=== PATIENT | male | born 1960 | race Caucasian/White ===

== ENCOUNTER 2024-09-27 09:44 | Inpatient (IN) ==
--- NOTE | 2024-08-23 09:12 | PAT Medication Instructions ---
Medication Instructions Date of Service August 23, 2024 Home Medications lisinopril 10 mg tablet 10 mg PO QAM metformin 500 mg tablet 1,500 mg PO QAM DO NOT take the morning of surgery lisinopril 10 mg tablet 10 mg PO QAM metformin 500 mg tablet 1,500 mg PO QAM Other Notes NOTHING TO EAT OR DRINK AFTER MIDNIGHT. If you have any questions please call us at [phone] or [phone] or [phone] or [phone]
--- NOTE | 2024-08-30 12:47 | Anesthesiology Consultation ---
Date of Service August 30, 2024 Assessment & Plan (1) Encounter for pre-operative examination: - Check BSG DOS - Infectious disease screening: Per assessment on 08/30/24- No known recent infectious disease contacts or current infectious disease symptoms. - Patient acceptable risk for surgery pending surgeon-ordered PCP preop evaluation (Dr. Neil Vega/Samir, appt ~09/11). Chart Review Chart Review: Patient seen in Pre Admission Testing Teaching & Discussion Pre-Anesthesia Teaching/Discussion Notes: Instructed NPO after midnight before surgery,except medications with 15 cc of water. Medication instructions provided according to the PAT guidelines. History Surgery Operation Date: 09/24/24 10:05 Proposed Procedures p L4-S1 Decompression and Fusion, Spinal Cord Monitoring - Alejo June DO Height/Weight Height: 5 ft 11 in Weight: 83.915 kg Allergies Allergy/AdvReac Type Severity Reaction Status Date / Time No Known Allergies Allergy Verified 08/16/24 11:15 Medications Home Medications Medication Instructions Recorded Confirmed Last Taken lisinopril 10 mg tablet 10 mg PO QAM 08/16/24 08/16/24 Unknown metformin 500 mg tablet 1,500 mg PO QAM 08/16/24 08/16/24 Unknown Past Medical History Medical History Diabetes NIDDM History of colon polyps "benign" History of COVID-19 (2022) Spinal stenosis Exercise / Class Metabolic Activity II 4-5 Yardwork/Stairs/Walk up hill (one FS: No CP, no SOB) Past Surgical History Surgical History History of anesthesia reaction "Don't come around quickly.. fog-like" History of arthroscopy of right knee x2 History of arthroscopy of right shoulder History of back surgery Herniation "clipping" via small incision History of colonoscopy History of repair of left rotator cuff Arthroscopic History of repair of right rotator cuff Past Anesthesia History No Family Hx of Anesthesia Complications and Other ("Don't come around quickly.. fog-like") History of PONV No Hx of PONV and No Hx of Motion Sickness Social History Smoking Status: Former smoker Do You Dip or Chew Tobacco: No Smoking End Date: Quit 07/2024 Hx Alcohol Use: Yes Alcohol type: beer alcohol intake frequency: a few times a week Hx Substance Use: No substance use type: does not use Review of Systems Patient denies chest pain, shortness of breath, dyspnea on exertion, fever, chills, cough, wheezing, palpitations. Physical Exam Vital Signs BP 123/63 P 71 TEMP 97.5 SP02 95%RA RESP 18 Physical Full cervical extension range of motion. Full TMJ range of motion. TMD 3 finger breaths Mallampati Score III Dentition: intact Lungs: course breath sounds in lung bases Cardiac: regular rate and rhythm, no murmurs noted Spine: normal Carotid arteries: negative bruit Extremities: no LE edema Lab Results Anesthesia Preop Results Results Anesthesia Widget: WBC 6.32 K/ul (4.8-10.8) 08/30/24 Hgb 15.6 g/dl (14.0-18.0) 08/30/24 Hct 46.1 % (42.0-52.0) 08/30/24 Plt 228 K/uL (130-400) 08/30/24 Na 136 mmol/L (136-145) 08/30/24 K 4.1 mmol/L (3.5-5.1) 08/30/24 Cl 104 mmol/L (98-107) 08/30/24 CO2 25 mmol/L (21-32) 08/30/24 BUN 16 mg/dl (6-23) 08/30/24 Creat 0.64 mg/dl (0.6-1.4) 08/30/24 Glucose Level 134 mg/dl (70-99(Fasting)) H 08/30/24 PT 10.3 Seconds (9.0-12.0) 08/30/24 PTT 27 Seconds (21-31) 08/30/24 INR 0.9 (0.9-1.1) 08/30/24 HA1c 6.8 % (4.5-5.6) H 08/30/24 Urine Color Yellow 08/30/24 Urine Appearance Clear (Clear) 08/30/24 Urine pH 5.5 (4.5-7.5) 08/30/24 Urine Specific [place] 1.028 (1.000-1.030) 08/30/24 Urine Protein Negative (Negative) 08/30/24 Urine Glucose (UA) 3+ (Negative) H 08/30/24 Urine Ketones Trace (Negative) H 08/30/24 Urine Blood Negative (Negative) 08/30/24 Urine Nitrite Negative (Negative) 08/30/24 Urine Bilirubin Negative (Negative) 08/30/24 Urine Urobilinogen Negative (Negative) 08/30/24 Urine Leukocyte Esterase Negative (Negative) 08/30/24 Blood Type O Positive 08/30/24 Antibody Screen NEGATIVE 08/30/24 Testing Electrocardiogram Date: 08/30/24 NSR at 63bpm. LAD. iRBBB. Other Testing Low dose lung cancer CT Date: 08/06/24 No concerning pulmonary nodules. Few scattered stable small pulmonary nodules largest 6mm. F/U LDCT 12 months recommended per report.
[2024-09-27] MEDS: LR 60ML/HR IV SCH ×2 (06:00→16:44)
[2024-09-27] MEDS: CeleBREX 200 MG CAP PO SCH ×2 (10:26→16:43)
[2024-09-27] MEDS: ACETAMINOPHEN 500 MG TAB PO SCH ×2 (10:26→16:42)
[2024-09-27] MEDS: GABAPENTIN 300 MG CAP PO SCH ×2 (10:26→16:43)
[2024-09-27] MEDS: LR 15ML/HR IV SCH (10:27)
[2024-09-27] MEDS ORDERED: PROPOFOL IV EMULSION 10 MG/ML 20 ML VIAL IV ONE ×2 (10:53→12:50)
[2024-09-27] MEDS ORDERED: DEXAMETHASONE SOD INJ 4 MG/ML VIAL ONE (10:53)
[2024-09-27] MEDS ORDERED: ONDANSETRON INJ 2 MG/ML 2 ML VIAL ONE (10:53)
[2024-09-27] MEDS ORDERED: fentaNYL citrate PF 100 MCG/2 ML VIAL ONE (10:54)
[2024-09-27] MEDS ORDERED: ROCURONIUM BROMIDE 10 MG/ML 5 ML VIAL IV ONE ×2 (10:54→12:52)
[2024-09-27] MEDS ORDERED: MIDAZOLAM HCL 1 MG/ML 2ML VIAL ONE (10:54)
[2024-09-27] MEDS ORDERED: LIDOCAINE 2% 2 ML VIAL/AMP(20MG/ML) INFIL ONE (10:55)
--- NOTE | 2024-09-27 11:41 | History & Physical Bridge Note ---
Date of Service September 27, 2024 History & Physical Bridge Note I have examined the patient, reviewed the History & Physical and in the interval since the performance of the History & Physical I have noted the following changes of clinical significance: no changes noted
--- NOTE | 2024-09-27 11:42 | History & Physical Report ---
Date of Service September 27, 2024 Assessment & Plan (1) Lumbosacral spondylosis with radiculopathy: Plan: L4-S1 decompression and fusion History of Present Illness Chief Complaint: Back and leg pain Primary Care Provider: Neil Vega DO This is a 64-year-old male who presents with chronic persistent back and leg pain after failing course of nonoperative care is here for surgical invention. Allergies Allergy/AdvReac Type Severity Reaction Status Date / Time No Known Allergies Allergy Verified 09/27/24 10:12 Home Medications Medication Instructions Recorded Confirmed Type lisinopril 10 mg tablet 10 mg PO QAM 08/16/24 09/27/24 History metformin 500 mg tablet 1,500 mg PO QAM 08/16/24 09/27/24 History Past Med/Surg History Problem List (Updated 09/27/24 @ 11:41 by Alejo June DO) Lumbosacral spondylosis with radiculopathy Encounter for pre-operative examination Medical History Diabetes NIDDM History of colon polyps "benign" History of COVID-19 (2022) Spinal stenosis Surgical History History of anesthesia reaction "Don't come around quickly.. fog-like" History of arthroscopy of right knee x2 History of arthroscopy of right shoulder History of back surgery Herniation "clipping" via small incision History of colonoscopy History of repair of left rotator cuff Arthroscopic History of repair of right rotator cuff Social History Smoking Status: Former smoker Tobacco Type: Cigarettes Smoking End Date: Quit 07/2024; Do You Dip or Chew Tobacco: No; Hx Alcohol Use: Yes Alcohol type: beer Hx Substance Use: No Preferred Language: Greek Communication Ability: Effective Razor Sharpener Required: No Beliefs That Will Affect Care: None Current Living Situation: Spouse Feels Safe at Home: Yes Assistive Devices: Glasses Physical Exam Physical Exam: Patient is alert and oriented heart regular in rhythm Lungs clear Results & Data Results & Data Vital Signs (Past 12 Hours) Vital Signs Temp Pulse Resp BP Pulse Ox O2 Del Method 09/27/24 10:13 36.8 C 58 L 20 126/71 95 Room Air
[2024-09-27] MEDS: ceFAZolin 2000MG 2,000 MG/15 ML SYR IV SCH ×3 (12:23→20:03)
[2024-09-27] MEDS ORDERED: HYDROmorphone INJ 2 MG/ML SYR/VIAL ONE (13:30)
[2024-09-27] MEDS: BUPIVACAINE/EPINEPHRINE 0.25% 1:200,000 30 ML VIAL ONE (13:38)
[2024-09-27] MEDS: ceFAZolin 330 MG/ML 1 GM VIAL ONE (13:39)
[2024-09-27] MEDS ORDERED: SUGAMMADEX SODIUM 200 MG/2 ML VIAL IV ONE ×2 (14:44→15:08)
--- NOTE | 2024-09-27 14:53 | Operative Report ---
Post Operative Report Pre & Post Diagnosis Operation Date: 09/27/24 11:25 Pre-Op Diagnosis: #1 lumbar spondylosis with radiculopathy. #2 lumbar discrimination with radiculopathy. #3 lumbar spondylolisthesis L5-S1 bilateral pars defect. 1 Post-Op Diagnosis: Same I identified the patient and participated in the time-out.: Yes Procedure Operation Date: 09/27/24 11:25 Actual Procedures #1 lumbar decompression with bilateral medial facetectomies and foraminotomies L3-L4 L4-L5 L5-S1. #2 posterior spinal fusion L4-S1. #3 placed posterior instrumentation L4-S1. #4 interbody fusion L4-L5 L5-S1. #5 placement of Spira 14 x 26 mm x 2 at L4-L5 and 12 x 26 mm x 2 L5-S1 #6 placement locally harvested morselized autograft and posterior gutters. #7 placement of infuse collagen sponge combined with Koros in the posterior lateral gutters and os design interbody space. #8 application of versa wrap over the exposed dura. Chest Surgeon Alejo June, DO Box Shook Patcher Romeo Lagos Estimated Blood Loss 600 Findings Consistent with Post-Op Diagnosis Specimens None Indications This is a 64-year-old male presents publish diagnosis of failing course of nonoperative care is here for surgical invention. Description of Procedure Patient was met with identified informed consent obtained. Patient was then taken to the operative suite underwent sedation placed in prone position on the Tunde table atop the Adolfo frame. All bony prominences well-padded eyes inspected to ensure no external pressure placed upon them. At this point lumbar spine was prepped and draped no sterile fashion. Sharp dissection with the assistance of Bovie cautery form down to and exposing the lamina transverse processes of L4-5 and the sacral ala bilaterally. Obvious bilateral pars defect noted at L5. A complete laminectomy L5 was then performed including bilateral medial facetectomies and foraminotomies addressing severe spinal stenosis. This was followed by complete laminectomy of L4 with bilateral medial facetectomies and foraminotomies and lastly partial laminectomy of L3 with bilateral medial facetectomies addressing all subarticular stenosis. Pedicle screws then placed in L4-L5 and S1 levels bilaterally with assistance of fluoroscopy and appropriate size robert contoured and placed. By way of transforaminal approach on the left discectomy of L5-S1 was performed endplates corrected to subcortical bleeding bone and a 12 x 26 mm spiral cage filled with os design bone graft ta pped in position. Then proceeded to the right transforaminal region at L5-S1. Again discectomy performed endplates guarded to subcortical bleeding bone and a second 12 x 26 mm Spira cage filled with os design bone graft tapped in position. There was seated L4-[address] of transforaminal approach on the left a discectomy was performed endplates guided to subcortical the bone and a 14 x 26 mm spiral cage filled with os design bone graft tapped position. Then proceeded to the right transforaminal region at L4-5. Again discectomy performed endplates grade 2 subcortical main bone and a second 14 x 26 mm Spira cage filled with os designed tapped in position. The rods were then compressed locked into final position bilaterally. The transverse processes of L4-L5 and sacral ala burred to subcortical bleeding bone infuse collagen sponge, with Koros and local autograft placed in posterior gutters. Os design placed over the exposed dura. 15 round KATHYA drain inserted. Incision was then closed with 1 Vicryl fascia 2-0 Vicryl subcutaneously and 4 Monocryl for final skin closure. Steri-Strips sterile dressing placed. Patient waken taken PACU stable condition. Please note spinal cord monitoring was utilized out the procedure no changes noted. Romeo Sorensen was present out the entire surgery involved the patient positioning complex portion of the surgery and final skin closure. I attest to the content of the Intraoperative Record and any orders documented therein. Any exceptions are noted below.
--- NOTE | 2024-09-27 15:32 | Fluoroscopy Report ---
FL lumbar spine 2-3V CLINICAL HISTORY: L4-S1 DECOMPRESSION AND FUSION COMPARISON STUDY: None FLUOROSCOPY TIME: 29 seconds FLUOROSCOPY IMAGES: 2 EXPOSURE DOSE: 18 mGy FINDINGS: Fluoroscopy was provided for lower lumbar fusion. IMPRESSION: Intraoperative fluoroscopy. ACT 112: Negative or not required by law. Electronically signed by: Eugene Guzman M.D. 09/27/2024 3:30 PM
[2024-09-27] MEDS: fentaNYL citrate PF 100 MCG/2 ML VIAL IV PRN (15:47)
[2024-09-27] MEDS ORDERED: ePHEDrine sulfate 50 MG/ML AMP IV PRN (15:48)
[2024-09-27] MEDS ORDERED: PROMETHAZINE HCL 6.25 MG in SODIUM CHLORIDE 0.9% 50 ML IV PRN (15:48)
[2024-09-27] MEDS ORDERED: HYDROmorphone INJ 2 MG/ML SYR/VIAL IV PRN (15:48)
[2024-09-27] MEDS ORDERED: ATROPINE SULFATE 0.1 MG/ML 10ML SYR IV PRN (15:48)
[2024-09-27] MEDS ORDERED: DEXAMETHASONE SOD INJ 4 MG/ML VIAL IV PRN (15:48)
--- NOTE | 2024-09-27 16:21 | Anesthesiology Progress Note ---
Date of Service September 27, 2024 Anesthesia Post Procedure Vital Signs Vital Signs: Temp Pulse Resp BP Pulse Ox O2 Del Method O2 Flow Rate 09/27/24 16:00 36.8 C 82 15 119/71 94 Nasal Cannula 4 09/27/24 15:50 61 17 119/73 96 Nasal Cannula 4 09/27/24 15:40 77 17 118/76 96 Nasal Cannula 4 09/27/24 15:30 70 17 127/68 96 Oxymask 5 09/27/24 15:20 78 17 126/69 96 Oxymask 15 09/27/24 15:14 36.8 C 81 17 147/71 H 93 Oxymask 15 09/27/24 10:13 36.8 C 58 L 20 126/71 95 Room Air Transfer of Care Handoff Completed per policy Notes Mental Status: alert / awake / arousable and participated in evaluation Patient Amnestic to Procedure: Yes Nausea / Vomiting: adequately controlled Pain: adequately controlled Airway Patency, RR, SpO2: stable & adequate BP & HR: stable & adequate Hydration State: stable & adequate Anesthetic Complications: no major complications apparent
[2024-09-27] MEDS ORDERED: ACETAMINOPHEN 1,000 MG/100 ML VIAL IV PRN (16:37)
[2024-09-27] MEDS ORDERED: NALOXONE HCL 0.4 MG/1 ML VIAL/CARP IV PRN (16:37)
[2024-09-27] MEDS ORDERED: KETOROLAC 30 MG/ML VIAL IV PRN (16:37)
[2024-09-27] MEDS ORDERED: FAMOTIDINE 20 MG TAB PO PRN (16:37)
[2024-09-27] MEDS ORDERED: SOD PHOSPHATE/SOD BIPHOSPHATE ENEMA 132 ML BTL PR PRN (16:37)
[2024-09-27] MEDS ORDERED: PHARMACY GLYCEMIC MGMT CONSULT PRN (16:37)
[2024-09-27] MEDS ORDERED: diphenhydrAMINE Capsule 25 MG CAP PO PRN (16:37)
[2024-09-27] MEDS ORDERED: ALUMINUM/MAGNESIUM SUSP 30 ML UDC PO PRN (16:37)
[2024-09-27] MEDS ORDERED: hydrOXYzine HCl 25 MG TAB PO PRN (16:37)
[2024-09-27] MEDS ORDERED: bisacodyL 10 MG SUPP PR PRN (16:37)
[2024-09-27] MEDS ORDERED: traMADol HCL 50 MG TABLET PO PRN (16:37)
[2024-09-27] MEDS ORDERED: LORazepam 2 MG/1 ML VIAL IV PRN (16:37)
[2024-09-27] MEDS ORDERED: ONDANSETRON 4 MG OD TAB PO PRN (16:37)
[2024-09-27] MEDS ORDERED: DO NOT ADMINISTER PNEUMOCOCCAL VACCINE PRN (16:37)
[2024-09-27] MEDS ORDERED: DO NOT ADMINISTER FLU VACCINE PRN (16:37)
[2024-09-27] MEDS ORDERED: PROMETHAZINE 12.5 MG/50.5 ML BAG IV PRN (16:37)
[2024-09-27] MEDS ORDERED: ONDANSETRON INJ 2 MG/ML 2 ML VIAL IV PRN (16:37)
[2024-09-27] MEDS ORDERED: LORazepam 0.5 MG TAB PO PRN (16:37)
[2024-09-27] MEDS ORDERED: HYDROmorphone INJ 0.5 MG/0.5 ML SYR IV PRN (16:37)
[2024-09-27] MEDS ORDERED: METOCLOPRAMIDE HCL INJ 5 MG/ML 2 ML VIAL IV PRN (16:37)
[2024-09-27] MEDS: fentaNYL citrate PF 100 MCG/2 ML VIAL ONE (16:46)
--- NOTE | 2024-09-27 16:56 | Hospitalist Consultation ---
Date of Consultation September 27, 2024 Assessment & Plan (1) Lumbosacral spondylosis with radiculopathy: (2) Spinal stenosis: - POD # 0 lumbar decompression fusion L4-S1 - Pain management, bowel regimen and DVT ppx per the primary team - PT/OT consults - Follow am CBC to monitor for acute blood loss, last Hgb of 15.6 on 08/30/24 (3) HTN (hypertension): - May continue lisinopril 10 mg daily (4) Diabetes: - ISS with accuchecks achs, Glycemic pharmacy has been consulted - Dm diet - A1C 6.8 earlier this month DVT ppx: teds, scds Lines: PIV x 1, KATHYA drain FEN/GI: Diabetic Diet CODE: Full code Dispo: From home, likely to remain in the hospital x 1-2 days A total of 35 minutes were spent with greater than 50% of that time face to face with the patient, personally reviewing all current laboratories, imaging studies, past medication reconciliation, outpatient chart review, and discussion with specialists to collaborate care for the patient with attending. Please see attending documentation for corrections and/or additions. Thank you for involving us in the care of Mr. Ny. If you have any questions or concerns please do not hesitate to call. At this time medicine will follow along. Supervising Physician Co-Signing Physician Notes Patient seen and examined after the surgery. He is awake alert oriented x 3. Not in any pain or distress Continue lisinopril for high blood pressure, sliding scale insulin for type 2 diabetes I have reviewed the advanced practitioner's documentation, and I agree with, and take responsibility for the plan of care I spent a total of 20 minutes coordinating, documenting, and providing care for this patient excluding time spent in the performance of separately billed services. All of the aforementioned completed while collaborating with the assigned advanced practitioner for a full treatment plan History of Present Illness Reason for Consultation: Medical management Requesting Physician: Dr. June Attending Physician: Alejo June, History of Present Illness This is a 64-year-old male with PMHx of DM II, HTN, lumbar disc herniation with radiculopathy, vertigo, knee surgery, ankle fracture and surgery, history of left repair rotator cuff, right shoulder surgery in 2000, spine surgery in 2000, who presents to the hospital for elective lumbar decompression spinal fusion by Dr. June today. Previous tobacco dependence with smoking cigarettes, started 42 years ago, he quit in Jun 2024. Pt is doing well so far. Denies any peripheral numbness/tingling, pain well-controlled. He has tolerated p.o. intake with sips of water, no nausea or vomiting. Last bowel movement was earlier this morning. He does use metformin as outpatient for diabetes. Patient lives at home patient is still somewhat groggy status post surgical procedure, wearing 2 L of oxygen, does not require any supplemental O2 at baseline. Allergies Allergy/AdvReac Type Severity Reaction Status Date / Time No Known Allergies Allergy Verified 09/27/24 10:12 Home Medications Medication Instructions Recorded Confirmed Type lisinopril 10 mg tablet 10 mg PO QAM 08/16/24 09/27/24 History metformin 500 mg tablet 1,500 mg PO QAM 08/16/24 09/27/24 History Patient History Medical History Diabetes NIDDM History of colon polyps "benign" History of COVID-19 (2022) Spinal stenosis Surgical History History of anesthesia reaction "Don't come around quickly.. fog-like" History of arthroscopy of right knee x2 History of arthroscopy of right shoulder History of back surgery Herniation "clipping" via small incision History of colonoscopy History of repair of left rotator cuff Arthroscopic History of repair of right rotator cuff Social History Smoking Status: Former smoker Tobacco Type: Cigarettes Smoking End Date: Quit 07/2024; Do You Dip or Chew Tobacco: No; Hx Alcohol Use: Yes Alcohol type: beer Hx Substance Use: No Preferred Language: Malawian Communication Ability: Effective Refinery Superintendent Required: No Beliefs That Will Affect Care: None Current Living Situation: Spouse Feels Safe at Home: Yes Assistive Devices: None Review of Systems Review of Systems: Constitutional: No fever, sweats or chills, no lightheadedness or dizziness Eyes: No diplopia, no worsening or blurred vision ENT: normal hearing, no trouble swallowing Respiratory: No cough, sputum, dyspnea at rest or on exertion Cardiovascular: No chest pain, tightness or palpitations Abdomen: No pain, nausea, vomiting, diarrhea or constipation Musculoskeletal: No joint pain, calf pain, swelling Neurologic: No weakness, numbness/tingling, or balance problems Psychiatric: No anxiety or depression Skin: No rash or itch Physical Exam Physical Exam: General: awake, alert, no apparent distress, white male Head: Normocephalic, atraumatic ENT: PERRL, EOMI, no pharyngeal exudate, mucous membranes moist Chest: Clear to auscultation, on 2L via NC, O2 sats mid 90s, no adventitious breath sounds Cardiac: Regular rate and rhythm, no murmur, no JVD, normal peripheral pulses, good capillary refill Abdominal: NABS x 4 quadrants, soft, nondistended, nontender to palpation, no rebound or guarding Extremities: Normal inspection, no peripheral edema or erythema, calfs nontender to palpation Psych: Normal mood and affect Neuro: AAO x 3, strength intact bilaterally and rated 5/5, no motor deficits, speech is clear, no peripheral sensory deficits Results & Data Results & Data Vital Signs (Past 12 Hours) Vital Signs Temp Pulse Pulse Resp BP Pulse Ox O2 Del Method 09/27/24 16:15 36.3 C L 68 16 121/68 93 Nasal Cannula 09/27/24 16:00 36.8 C 82 15 119/71 94 Nasal Cannula 09/27/24 15:50 61 17 119/73 96 Nasal Cannula 09/27/24 15:40 77 17 118/76 96 Nasal Cannula 09/27/24 15:30 70 17 127/68 96 Oxymask 09/27/24 15:20 78 17 126/69 96 Oxymask 09/27/24 15:14 36.8 C 81 17 147/71 H 93 Oxymask 09/27/24 10:13 36.8 C 58 L 20 126/71 95 Room Air O2 Flow Rate 09/27/24 16:15 2 09/27/24 16:00 4 09/27/24 15:50 4 09/27/24 15:40 4 09/27/24 15:30 5 09/27/24 15:20 15 09/27/24 15:14 15 09/27/24 10:13 Laboratory Results 09/27/24 09/27/24 09/27/24 15:19 10:13 09:57 POC Glucose 133 H 127 H Blood Type O Positive Antibody Screen NEGATIVE Crossmatch See Detail
[2024-09-27] MEDS: INSULIN ASPART PER UNIT CHARGE SC SCH (17:58)
[2024-09-27] MEDS: LANTUS PER UNIT CHARGE SC STA (18:11)
[2024-09-27] MEDS: DOCUSATE SODIUM/SENNA 50/8.6MG TAB PO SCH (20:02)
[2024-09-27] MEDS: ACETAMINOPHEN 500 MG TAB PO PRN (20:02)
[2024-09-27] MEDS: HYDROmorphone INJ 1 MG/ML SYRINGE IV PRN (21:58)
[2024-09-28] MEDS: INSULIN ASPART PER UNIT CHARGE SC ONE (02:49)
[2024-09-28] MEDS: POLYETHYLENE (MIRALAX) 17 GM PACK PO SCH (05:07)
[2024-09-28 07:04] LABS: Basophils # (auto) 0.02 K/uL (0.00-0.20); Basophils % (auto) 0.2 %; Eosinophils # (auto) 0.01 K/uL (0.00-0.50); Eosinophils % (auto) 0.1 %; Hematocrit (blood only) 36.5 % (42.0-52.0); Hemoglobin 12.4 g/dl (14.0-18.0); Immature Granulocytes # (auto) 0.03 K/uL (0.01-0.20); Immature Granulocytes % (auto) 0.2 %; Lymphocytes # (auto) 1.62 K/uL (1.20-3.40); Lymphocytes % (auto) 12.8 %; Mean Corpuscular Volume 85.3 fL (80.0-100.0); Mean Platelet Volume 12.3 fL (9.4-12.4); Monocytes # (auto) 1.08 K/uL (0.11-0.59); Monocytes % (auto) 8.6 %; Neutrophils # (auto) 9.86 K/uL (1.40-6.50); Neutrophils % (auto) 78.1 %; Platelet Count 187 K/uL (130-400); RDW Standard Deviation 40.6 fL (36.4-46.3); Red Blood Count 4.28 M/uL (4.70-6.10); White Blood Count 12.62 K/ul (4.8-10.8)
[2024-09-28 07:31] LABS: BUN Creatinine Ratio 23.1 (10-20); Calcium 8.5 mg/dl (8.6-10.3); Creatinine Clr Calc Pharmacy 120.7 ml/min
--- NOTE | 2024-09-28 08:38 | Orthopedic Progress Note ---
Date of Service September 28, 2024 Assessment & Plan (1) Lumbosacral spondylosis with radiculopathy: Plan: Today we will initiate physical therapy monitor his KATHYA operatively discharge home the next few days. Admission and Anticipated Discharge Date Admission Date: September 27, 2024 Subjective Back pain controlled leg pain improved Physical Exam Physical Exam: Patient is currently in bed. Comfortable. Is constricted testing. Results & Data Vital Signs (Past 12 Hours) Vital Signs Temp Pulse Resp BP Pulse Ox O2 Del Method O2 Flow Rate 09/28/24 07:37 36.6 C 64 14 104/59 L 96 Nasal Cannula 1 09/28/24 02:39 36.5 C 73 16 118/62 96 Nasal Cannula 2 09/27/24 22:46 36.6 C 67 16 100/61 94 Nasal Cannula 2
[2024-09-28] MEDS: LANTUS PER UNIT CHARGE SC SCH (08:43)
[2024-09-28] MEDS: lisinopril 10 MG TAB PO SCH (08:45)
[2024-09-28] MEDS: dexAMETHasone 6 MG in SYRINGE 0 ML IV SCH (08:45)
--- NOTE | 2024-09-28 15:00 | Pharmacy Report ---
Pharmacy Glycemic Short Note 2 - Date of Service September 28, 2024 - Glycemic Short BSG Results (Last 24 hours): 09/27/24 09/27/24 09/28/24 15:19 21:34 02:12 Glucose POC Glucose 133 H 252 H 160 H 09/28/24 09/28/24 09/28/24 05:57 07:37 11:34 Glucose 127 H POC Glucose 137 H 199 H OUTPATIENT ANTIDIABETIC REGIMEN: * Metformin 1500 mg PO AM HbA1c: * pending and [facility] inpatient lab A1c analyzer is down until 09/30/24 ASSESSMENT: * 64 yo M admitted on 09/27/24 postoperatively following a spinal surgery with Dr. June. Pharmacy has been consulted to assist with inpatient glycemic management. Patient is a Type 2 diabetic as an outpatient. Please refer to outpatient regimen and most recent HbA1c above. * Received 8 units basal + 5 units bolus last night. BSGs were 133-252 mg/dL. Received 8 mg IV dexamethasone periop. Ordered 6 mg IV dexamethasone daily x 3 days. * Fasting BSG was 137 mg/dL this AM. Increasing basal slightly to cover steroids. * Originally ordered clear liquid diet postop. Now started on T2DM diet with lunch today and tolerated well. Tightened Novolog to reflect weight/stress of 3 while on steroids. PLAN FOR INPATIENT GLYCEMIC CONTROL: * Hold outpatient oral diabetes medications * Basal insulin * Lantus 10 units SC daily * Bolus insulin * NovoLog per scale ACHS or Q6hrs while NPO * Goal Range: Low 110 mg/dL - High 140 mg/dL * Correction Factor: 20 mg/dL/unit * Nutritional / Prandial insulin per carb ratio of 1 unit per 7 grams CHO consumed
--- NOTE | 2024-09-28 16:41 | Hospitalist Progress Note ---
Date of Service September 28, 2024 Assessment & Plan (1) Lumbosacral spondylosis with radiculopathy: (2) Spinal stenosis: Plan: - POD # 1 lumbar decompression fusion L4-S1 - Pain management, bowel regimen and DVT ppx per the primary team - PT/OT consults - Follow am CBC to monitor for acute blood loss (3) HTN (hypertension): Plan: - May continue lisinopril 10 mg daily (4) Diabetes: Plan: - ISS with accuchecks [facility], Glycemic pharmacy has been consulted - Dm diet - A1C 6.8 earlier this month Plan I spent a total of 30 minutes in direct patient care, including [id number] time with the patient and/or family, reviewing medical records, ordering and reviewing diagnostic tests, and coordinating care with other healthcare providers. This time includes: history taking, physical examination, medical decision making, counseling, ECG interpretation, imaging interpretation, lab interpretation, orders, and education, excluding time spent in the performance of separately billed services. Admission and Anticipated Discharge Date Admission Date: September 27, 2024 Subjective seen and examined at bedside. Patient is doing well today. Some pain with mobilization but otherwise doing well. Review of Systems Review of Systems: Constitutional: No fever, sweats or chills, no lightheadedness or dizziness Eyes: No diplopia, no worsening or blurred vision ENT: normal hearing, no trouble swallowing Respiratory: No cough, sputum, dyspnea at rest or on exertion Cardiovascular: No chest pain, tightness or palpitations Abdomen: No pain, nausea, vomiting, diarrhea or constipation Musculoskeletal: some back pain noted Neurologic: No weakness, numbness/tingling, or balance problems Psychiatric: No anxiety or depression Skin: No rash or itch Physical Exam Physical Exam: Gen: A&O 3 NAD HEENT: NCAT, EOMI, not icteric. External ears normal. No rhinorrhea. Moist mucous membranes. Neck: Supple, full range of motion, no observable masses, No meningeal sign. Lungs: No Respiratory distress. CV: RRR, no edema. Abdomen: Soft, nondistended, No rebound tenderness. MSK: No joint swelling, no redness. post surgical lumbar site noted, minimal tenderness to palpation with slight blood on wound dressing Skin: No rashes, petechiae, lesions. Normal color per patient. Neuro: Normal Gait, Grossly intact. Psych: Appropriate for situation. Results & Data Results & Data Vital Signs (Past 12 Hours) Vital Signs Temp Pulse Resp BP BP Pulse Ox O2 Del Method 09/28/24 15:57 36.9 C 78 16 101/51 L 94 Room Air 09/28/24 13:30 96 09/28/24 11:36 36.7 C 58 L 16 116/52 L 96 Nasal Cannula 09/28/24 08:30 Nasal Cannula 09/28/24 07:37 36.6 C 64 14 104/59 L 96 Nasal Cannula O2 Flow Rate 09/28/24 15:57 09/28/24 13:30 09/28/24 11:36 2 09/28/24 08:30 2 09/28/24 07:37 1 Laboratory Results - Personally reviewed, creatinine at baseline and hemoglobin level acceptable at this time Medications Administered Acetaminophen (Acetaminophen 500 Mg Tab) 1,000 mg PO Q8H PRN PRN Reason: MILD Pain Scale 1,2,3 & Pre PT Stop: 10/27/24 16:36 Last Admin: 09/27/24 20:02 Dose: 1,000 mg Documented By: KRISTIN Hydromorphone HCl (Hydromorphone Inj 1 Mg/Ml Syringe) 1 mg IV Q3H PRN PRN Reason: SEVERE Pain (Scale 7,8,9,10) Stop: 10/11/24 16:36 Last Admin: 09/28/24 10:03 Dose: 1 mg Documented By: Admin: 09/28/24 03:25 Dose: 1 mg Documented By: Admin: 09/27/24 21:58 Dose: 1 mg Documented By: KRISTIN Dexamethasone 6 mg/ Syringe 1.5 mls @ 1 mls/min IV DAILY MARCIE Stop: 09/30/24 09:02 Last Admin: 09/28/24 08:45 Dose: 1 mls/min Documented By: TRACEY Insulin Aspart (Insulin Aspart Per Unit Charge) 0 units SC ACHS [facility] [place] Stop: 10/27/24 17:14 Last Admin: 09/28/24 12:48 Dose: 9 units Documented By: TRACEY Co-signed By: CRISTAL Admin: 09/28/24 08:31 Dose: Not Given Documented By: TRACEY Co-signed By: CRISTAL Admin: 09/27/24 21:51 Dose: 5 units Documented By: KRISTIN Co-signed By: JASON Admin: 09/27/24 17:58 Dose: Not Given Documented By: TRACEY Insulin Glargine (Lantus Per Unit Charge) 10 units SC DAILY MARCIE Stop: 10/28/24 08:59 Last Admin: 09/28/24 08:43 Dose: 10 units Documented By: TRACEY Co-signed By: ANABELA Lisinopril (Lisinopril 10 Mg Tab) 10 mg PO QAM MARCIE Stop: 10/28/24 08:59 Last Admin: 09/28/24 08:45 Dose: 10 mg Documented By: TRACEY Polyethylene Glycol (Polyethylene (Miralax) 17 Gm Pack) 17 gm PO Q6 MARCIE Stop: 10/28/24 05:59 Last Admin: 09/28/24 12:47 Dose: 17 gm Documented By: Admin: 09/28/24 05:07 Dose: 17 gm Documented By: KRISTIN Senna/Docusate Sodium (Docusate Sodium/Senna 50/8.6mg Tab) 2 tab PO HS MARCIE Stop: 10/27/24 20:59 Last Admin: 09/27/24 20:02 Dose: 2 tab Documented By: KRISTIN
[2024-09-29] MEDS: oxyCODONE HCL IR 5 MG TAB (IMMEDIATE RELEASE) PO PRN (02:20)
[2024-09-29 06:37] LABS: Hematocrit (blood only) 36.5 % (42.0-52.0); Hemoglobin 11.9 g/dl (14.0-18.0); Mean Corpuscular Hemoglobin 28.1 pg (25.0-34.0); Mean Corpuscular Hgb Conc 32.6 g/dL (32.0-36.0); Mean Corpuscular Volume 86.1 fL (80.0-100.0); Mean Platelet Volume 12.2 fL (9.4-12.4); Platelet Count 184 K/uL (130-400); RDW Coefficient of Variation 13.1 % (11.5-14.5); RDW Standard Deviation 40.9 fL (36.4-46.3); Red Blood Count 4.24 M/uL (4.70-6.10); White Blood Count 12.12 K/ul (4.8-10.8)
[2024-09-29 07:10] LABS: BUN Creatinine Ratio 24.2 (10-20); Calcium 8.4 mg/dl (8.6-10.3); Creatinine Clr Calc Pharmacy 126.5 ml/min; Potassium 3.9 mmol/L (3.5-5.1)
--- NOTE | 2024-09-29 11:21 | Orthopedic Progress Note ---
Date of Service September 29, 2024 Assessment & Plan (1) Lumbosacral spondylosis with radiculopathy: Plan: At this time we will continue physical therapy monitor his KATHYA output anticipate discharge home tomorrow. Admission and Anticipated Discharge Date Admission Date: September 27, 2024 Subjective Patient's back pain is controlled leg symptoms improved. Physical Exam Physical Exam: On exam he is in the chair at the bedside. Discussed when to testing. Is comfortable. Results & Data Vital Signs (Past 12 Hours) Vital Signs Temp Pulse Resp BP Pulse Ox O2 Del Method 09/29/24 07:36 36.8 C 64 16 108/57 L 94 Room Air
[2024-09-29] MEDS: MAGNESIUM HYDROXIDE SUSP 30 ML UDC PO PRN (12:26)
--- NOTE | 2024-09-29 13:34 | Hospitalist Progress Note ---
Date of Service September 29, 2024 Assessment & Plan (1) Lumbosacral spondylosis with radiculopathy: (2) Spinal stenosis: Plan: - POD # 2 lumbar decompression fusion L4-S1 - Pain management, bowel regimen and DVT ppx per the primary team - PT/OT consults - continue to follow CBC to monitor for acute blood loss (3) HTN (hypertension): Plan: -continue lisinopril 10 mg daily (4) Diabetes: Plan: - ISS with accuchjo barnett, Glycemic pharmacy has been consulted - Dm diet - A1C 6.8 earlier this month Plan I spent a total of 30 minutes in direct patient care, including [id number] time with the patient and/or family, reviewing medical records, ordering and reviewing diagnostic tests, and coordinating care with other healthcare providers. This time includes: history taking, physical examination, medical decision making, counseling, ECG interpretation, imaging interpretation, lab interpretation, orders, and education, excluding time spent in the performance of separately billed services. Admission and Anticipated Discharge Date Admission Date: September 27, 2024 Subjective Patient seen and examined at bedside. Patient doing well today, pain controlled with pain medication. Review of Systems Review of Systems: Constitutional: No fever, sweats or chills, no lightheadedness or dizziness Eyes: No diplopia, no worsening or blurred vision ENT: normal hearing, no trouble swallowing Respiratory: No cough, sputum, dyspnea at rest or on exertion Cardiovascular: No chest pain, tightness or palpitations Abdomen: No pain, nausea, vomiting, diarrhea or constipation Musculoskeletal: some back pain noted, similar to yesterday Neurologic: No weakness, numbness/tingling, or balance problems Psychiatric: No anxiety or depression Skin: No rash or itch Physical Exam Physical Exam: Gen: A&O 3 NAD HEENT: NCAT, EOMI, not icteric. External ears normal. No rhinorrhea. Moist mucous membranes. Neck: Supple, full range of motion, no observable masses, No meningeal sign. Lungs: No Respiratory distress. CV: RRR, no edema. Abdomen: Soft, nondistended, No rebound tenderness. MSK: No joint swelling, no redness. post surgical lumbar site noted, similar tenderness as prior Skin: No rashes, petechiae, lesions. Normal color per patient. Neuro: Normal Gait, Grossly intact. Psych: Appropriate for situation. Results & Data Results & Data Vital Signs (Past 12 Hours) Vital Signs Temp Pulse Resp BP Pulse Ox O2 Del Method 09/29/24 13:15 95 09/29/24 07:36 36.8 C 64 16 108/57 L 94 Room Air Laboratory Results -personally reviewed, Hgb continues to be stable as well as creatinine
[2024-09-29 21:23] VITALS: PULSE 63
[2024-09-30] MEDS: INSULIN ASPART PER UNIT CHARGE SC SCH (00:32)
[2024-09-30 06:53] VITALS: BP 129/72; RESP 18; TEMP 97.5; O2SAT 95
[2024-09-30 07:40] LABS: Hematocrit (blood only) 34.8 % (42.0-52.0); Hemoglobin 11.7 g/dl (14.0-18.0); Mean Corpuscular Hemoglobin 28.5 pg (25.0-34.0); Mean Corpuscular Hgb Conc 33.6 g/dL (32.0-36.0); Mean Corpuscular Volume 84.7 fL (80.0-100.0); Mean Platelet Volume 12.1 fL (9.4-12.4); Platelet Count 194 K/uL (130-400); RDW Standard Deviation 39.6 fL (36.4-46.3); Red Blood Count 4.11 M/uL (4.70-6.10); White Blood Count 12.11 K/ul (4.8-10.8)
[2024-09-30 07:50] LABS: BUN Creatinine Ratio 21.7 (10-20); Calcium 8.8 mg/dl (8.6-10.3); Creatinine Clr Calc Pharmacy 130.7 ml/min; Potassium 3.9 mmol/L (3.5-5.1)
[2024-09-30] MEDS: LANTUS PER UNIT CHARGE SC SCH (08:21)
--- NOTE | 2024-09-30 09:49 | Discharge Summary ---
Date of Service September 30, 2024 Admission HPI Per Admitting Provider This is a 64-year-old male who presents with chronic persistent back and leg pain after failing course of nonoperative care is here for surgical invention. Principal Diagnosis Lumbar spondylosis with radiculopathy, lumbar spondylolisthesis with radiculopathy. Discharge Data Allergies Allergy/AdvReac Type Severity Reaction Status Date / Time No Known Allergies Allergy Verified 09/27/24 10:12 Consultations 09/27/24 16:37 Consult Hospitalist Routine Procedures Performed Operation Date: 09/27/24 11:25 Actual Procedures p L4-S1 Decompression and Fusion, Spinal Cord Monitoring(Not Applicable) - Alejo June DO Ordered Studies 09/27/24 11:25 FL lumbar spine 2-3V Routine Hospital Course (1) Lumbosacral spondylosis with radiculopathy: Patient went multilevel lumbar depression fusion tolerated as well as taken to orthopedic for postoperative. Postop he progressed appropriately marked improvement of his back and leg pain. KATHYA drain decreasing. Extra strength testing. Subsidy discharged home. Discharge orders and instructions from the chart for further review. Total Time Total Time Spent Total Time Spent (In Minutes): 20 minutes Discharge Plan Discharge Items Patient Disposition: Home - Self-Care Reason For Visit: Lumbar Pain, Lumbar Radiculopathy, Spondylolisthes Discharge Diagnosis: Lumbar spondylolisthesis with radiculopathy Activity: As commented below Non-emergency contact: Primary Care Provider Call non-emergency contact if: you have any medication questions Follow-up/Referrals: Neil Vega DO [Primary Care Provider] - 10/10/24 3:15 pm Diet: Regular Addtl Attending Provider Instructions: ACTIVITY RECOMMENDATIONS: SELF CARE INSTRUCTIONS AFTER THORACIC/LUMBAR FUSIONS 1. You may walk to your tolerance. It is good exercise for your legs and back. Expect some back and intermittent leg aches and pains. 2. You may perform "counter-top" level activities (make a sandwich, kwaku with a project, etc.). 3. No bending or lifting of more than 10 pounds or back twisting of any nature (roll like a log when turning in bed). 4. You may ride in a car for 20-30 minutes at a time. No driving until after your first visit with your doctor. 5. Frequent changes of position and restricting sitting to 30 minutes at a time will help limit the amount of back spasms and stiffness you may experience. 6. You may discontinue the use of ambulatory aids (cane, crutches, etc.) once your strength and confidence allow. 7. You may coating line worker the shower and let water strike your incision when you arrive home at least once daily. Do not take a tub bath, sit in a hot tub or go into a swimming pool until after your first recheck in the office. 8. You may resume previous diet. SPECIAL CARE INSTRUCTIONS: VERY IMPORTANT TO READ AND REVIEW A. Your surgical incision has been closed with a cosmetic suture under the skin that will dissolve in about 6 weeks. In 14 days, you can use a pair of clean scissors and cut the suture that is left outside of the skin at the ends of your incision. 1. The small skin tapes can be removed 7 days after surgery if they have not fallen off by that point. 2. You may keep the wound open to air as much as possible to promote healing after post-op day number 5 unless told otherwise by your doctor. 3. If you think the wound looks like it is becoming infected (redness or worsening drainage) and/or you are experiencing fever, chill or worsening back pain and muscle spasms, contact the office so that we may evaluate you as soon as possible. B. Complications are uncommon, but please contact us if you have any signs or symptoms of: 1. wound infection (fever higher than 102.5 degrees F, redness, separation of wound, drainage, or increasing pain from the incision) 2. blood clots in legs (pain, swelling, redness and warmth in legs) 3. urinary tract infection (fever higher than 102.5 degrees F, burning upon urination or increased frequency of urination) 4. nerve problems (inability to walk on your toes or heels, numbness, loss of bowel or bladder control) 5. any other symptoms that concern you C. Please call the office at if you have any concerns or questions about your operation or recovery. D. No smoking! Smoking drastically decreases the chance of a solid fusion. E. Do not take any anti-inflammatory medications (Indocin, Advil, Motrin, Aspirin, Naprosyn, etc.) as these may inhibit the chance of a solid fusion. Tylenol is okay to take for pain. MANAGING PAIN AFTER SPINAL SURGERY 1. Narcotic medication is intended for short-term use and will be provided for surgical pain. Surgical pain usually lasts for a period of 4-6 weeks. Narcotic medication includes Percocet, Vicodin, Darvocet, Tylenol #3 or Lortab. 2. Longer-term pain is more appropriately treated with non-narcotic medication such as Tylenol ES. 3. Muscle spasm is not appropriately treated with narcotics. Muscle relaxers such as Soma, Flexeril or Skelaxin can be used along with Tylenol ES. 4. Remember that we all live with some "aches and pains". This is not unusual or uncommon after an injury or as we get older. a. Back pain is expected and may include muscle spasms for 4 to 6 weeks after surgery. The pain should gradually improve. If the pain worsens for no apparent reason, please contact the office. b. Intermittent leg pain may also be experienced and should not be concerned about unless it worsens for no apparent reason. If so, please contact the office. 5. We will provide appropriate medication within the normal guidelines of their prescribed use. We will also be very cautious and aware of potential abuse and extended duration of patients' medication needs. a. Pain medications are for your comfort and to assist with sleep and rest so that the tissue can heal. They are not provided in order to return to normal activity and should not be used through the day. To do so or worsening pain at night can result from ongoing tissue damage and development of tolerance to the prescribed medicine. 6. Please allow 2-3 days to process refills. Prescriptions will not be mailed but must be picked up at the office. FOLLOW UP VISIT: Keep your scheduled follow-up appointment. Any questions, please call the office at . Pending Studies at Discharge: No Stand-Alone Forms: [facility], Smoking Cessation Medications and DC Order Prescriptions: New tramadol 50 mg tablet 50 mg PO Q6H PRN (Reason: pain, moderate) Qty: 30 0RF oxycodone 5 mg tablet 5 mg PO Q6H PRN (Reason: pain) Qty: 30 0RF Continued metformin 500 mg Tablet 1,500 mg PO QAM lisinopril 10 mg Tablet 10 mg PO QAM Patient Comments: never had high blood pressure, when put on metformin also put on lisinopril. Discharge Orders: Discharge Order (Routine); Ordered 09/30/24 Ordered By: Alejo June Admission Data Admit Date/Time: 09/27/24 14:57 Attending Provider: Alejo June Admit Provider: Alejo June Primary Care Provider: Neil Vega Other Providers: Cris Edwards
--- NOTE | 2024-09-30 13:57 | Hospitalist Progress Note ---
Date of Service September 30, 2024 Assessment & Plan (1) Lumbosacral spondylosis with radiculopathy: (2) Spinal stenosis: Plan: - POD # 3 lumbar decompression fusion L4-S1 - Pain management, bowel regimen and DVT ppx per the primary team - PT/OT consults - continue to follow CBC to monitor for acute blood loss (3) HTN (hypertension): Plan: -continue lisinopril 10 mg daily (4) Diabetes: Plan: - ISS with accpriscilla barnett, Glycemic pharmacy has been consulted - Dm diet - A1C 6.8 earlier this month Plan I spent a total of 25 minutes in direct patient care, including [id number] time with the patient and/or family, reviewing medical records, ordering and reviewing diagnostic tests, and coordinating care with other healthcare providers. This time includes: history taking, physical examination, medical decision making, counseling, ECG interpretation, imaging interpretation, lab interpretation, orders, and education, excluding time spent in the performance of separately billed services. Admission and Anticipated Discharge Date Admission Date: September 27, 2024 Subjective patient seen and examined at bedside. Patient doing well today, pain still present but improving. Looking forward to going home today. Review of Systems Review of Systems: Constitutional: No fever, sweats or chills, no lightheadedness or dizziness Eyes: No diplopia, no worsening or blurred vision ENT: normal hearing, no trouble swallowing Respiratory: No cough, sputum, dyspnea at rest or on exertion Cardiovascular: No chest pain, tightness or palpitations Abdomen: No pain, nausea, vomiting, diarrhea or constipation Musculoskeletal: some back pain noted, similar to yesterday Neurologic: No weakness, numbness/tingling, or balance problems Psychiatric: No anxiety or depression Skin: No rash or itch Physical Exam Physical Exam: Gen: A&O 3 NAD HEENT: NCAT, EOMI, not icteric. External ears normal. No rhinorrhea. Moist mucous membranes. Neck: Supple, full range of motion, no observable masses, No meningeal sign. Lungs: No Respiratory distress. CV: RRR, no edema. Abdomen: Soft, nondistended, No rebound tenderness. MSK: No joint swelling, no redness. post surgical lumbar site noted Skin: No rashes, petechiae, lesions. Normal color per patient. Neuro: Normal Gait, Grossly intact. Psych: Appropriate for situation. Results & Data Results & Data Vital Signs (Past 12 Hours) Vital Signs Temp Pulse Resp BP Pulse Ox O2 Del Method 09/30/24 06:50 36.4 C L 63 18 129/72 95 Room Air Laboratory Results - Personally reviewed, hemoglobin with slow downtrend but still well within normal limits, creatinine stable
== END 2024-09-30 11:29 | disposition home or self-care (01) | DRG 427 ==
LOC: ASU 09:44 → 3W 14:57